=== PATIENT | female | born 1955 | race Caucasian/White ===

== ENCOUNTER 2020-08-25 17:55 | Emergency (ER) | payer MEDICARE, OTHER ==
--- NOTE | 2020-08-25 18:11 | EDM.PDOC ---
ED HPI GENERAL MEDICAL PROBLEM - General Stated Complaint: BACK PAIN Time Seen by Provider: 08/25/20 18:10 Source of Information: Reports: Patient History Limitations: Reports: No Limitations - History of Present Illness INITIAL COMMENTS - FREE TEXT/NARRATIVE: 65-year-old female who reports that she initially had some soreness in her lower back and mostly in the right hip in April 2020. Since then the pain has become more severe and seems to be mostly in her mid back that initially was a soreness and has developed into a progressively worsening pain that is sharp and worse with movement over the past 2-3 weeks. She was seen by her primary provider at that time at [facility] in [place] and had a plain x-ray of her lumbar spine performed that did not show anything and the patient was ref erred to a chiropractor. The patient has seen a chiropractor 3 times and she feels that her pain has been worsening with each treatment beginning days ago she began to have pain in her left flank that seemed be radiating from her back to her left upper abdomen. All of these pains have been progressively worsening to the point where she cannot even ambulate without extreme assistance and she cannot stand because of the severe pain. With any movement her pain goes up to a 10/10 and her pain is a 7/10 at rest. She has had no bowel or bladder control problems. She has taken tramadol for the pain without any relief. There is been no trauma. There has been no fevers or chills. She has not really been eating that well but she does report that she has been drinking liquids well. No dysuria or hematuria. She was somewhat constipated but reports that she took a laxative today and "it's all right now". There are no other associated signs or symptoms. There are no other modifying factors. 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: Other Medication(s) (Tramadol) Bilateral Lower Back Pain Score (Numeric/FACES): 6 - Related Data Allergies Allergy/AdvReac Type Severity Reaction Status Date / Time pseudoephedrine Allergy Rash Verified 08/25/20 18:10 [From Sudafed] Home Meds: Home Meds Cyclobenzaprine [Flexeril] 10 mg PO TID PRN 08/25/20 [History] Escitalopram [Lexapro] 20 mg PO DAILY 08/25/20 [History] Losartan [Cozaar] 100 mg PO DAILY 08/25/20 [History] hydroCHLOROthiazide [Hydrochlorothiazide] 25 mg PO DAILY 08/25/20 [History] traMADol [Ultram] 50 mg PO Q8H PRN 08/25/20 [History] Past Medical History Cardiovascular History: Reports: Hypertension Oncologic (Cancer) History: Reports: Breast - Past Surgical History Female Surgical History: Reports: Hysterectomy Endocrine Surgical History: Reports: Thyroidectomy (Partial thyroidectomy) Oncologic Surgical History: Reports: Lumpectomy (Right breast) Social & Family History - Tobacco Use Tobacco Use Status *Q: Unknown Ever Used Tobacco (Nonsmoker.) - Alcohol Use Alcohol Use Frequency: Socially (Occasional alcohol use.) - Living Situation & Occupation Living situation: Reports: Occupation: Retired ED ROS GENERAL - Review of Systems Review Of Systems: See Below Constitutional: Reports: Malaise, Weakness HEENT: Reports: No Symptoms Respiratory: Reports: No Symptoms Cardiovascular: Reports: No Symptoms GI/Abdominal: Reports: Abdominal Pain. Denies: Diarrhea, Vomiting : Reports: No Symptoms Musculoskeletal: Reports: Back Pain Skin: Reports: No Symptoms Neurological: Reports: No Symptoms Psychiatric: Reports: No Symptoms Hematologic/Lymphatic: Reports: No Symptoms Immunologic: Reports: No Symptoms ED EXAM, GENERAL - Physical Exam Exam: See Below Exam Limited By: No Limitations General Appearance: Alert, Moderate Distress, Obese, Other (Does appear somewhat toxic tachycardia. She is awake, alert and appropriately interactive and responsive.) Eye Exam: Bilateral Eye: EOMI, Normal Inspection (Sclera are anicteric), PERRL Ears: Normal External Exam, Hearing Grossly Normal Ear Exam: Bilateral Ear: Auricle Normal Nose: Normal Inspection, Normal Mucosa, No Blood Throat/Mouth: Normal Voice, No Airway Compromise, Other (Dry mucous membranes) Head: Atraumatic, Normocephalic Neck: Normal Inspection, Supple, Non-Tender, Full Range of Motion Respiratory/Chest: No Respiratory Distress, Lungs Clear, Normal Breath Sounds, No Accessory Muscle Use, Chest Non-Tender Cardiovascular: Normal Peripheral Pulses, No JVD, No Murmur, Tachycardia Peripheral Pulses: 2+: Radial (L), Radial (R), Dorsalis Pedis (L), Dorsalis Pedis (R) GI/Abdominal: Normal Bowel Sounds, Soft, No Mass, Tender (In the left upper quadrant and at the costal margin on the left side). No: Splenomegaly Back Exam: Muscle Spasm (In the lumbar area.), Vertebral Tenderness (Diffuse tenderness.) Extremities: Normal Inspection, Normal Range of Motion, Non-Tender, No Pedal Edema, Normal Capillary Refill Neurological: Alert, Oriented, CN II-XII Intact, Normal Cognition, No Motor/Sensory Deficits Psychiatric: Normal Affect Skin Exam: Warm, Dry, Intact, Normal Color, No Rash #1 Interpretation EKG Date: 08/25/20 Time: 18:57 Rhythm: Other (Sinus tachycardia) Rate (Beats/Min): 110 [place]: Normal P-Wave: Present QRS: Normal ST-T: Depressed (Diffuse T-wave inversion and depression) QT: Normal Comparison: NA - No Prior EKG Course - Vital Signs Last Recorded V/S: Last Vital Signs Temp 36.7 C 08/25/20 18:10 Pulse 111 H 08/25/20 21:42 Resp 16 08/25/20 21:42 BP 116/64 08/25/20 21:42 Pulse Ox 96 08/25/20 21:42 - Orders/Labs/Meds Orders: Active Orders 24 hr Category Date Time Status EKG Documentation Completion [RC] ASDIRECTED Care 08/25/20 18:26 Active Abdomen Pelvis w Cont [CT] Stat Exams 08/25/20 19:31 Taken Lumbar Spine wo Cont [CT] Stat Exams 08/25/20 19:31 Taken CORONAVIRUS COVID-19 ZAY [MOLEC] Stat Lab 08/25/20 22:27 Received Sodium Chloride 0.9% [Normal Saline] 1,000 ml Med 08/25/20 18:30 Active IV ASDIRECTED Sodium Chloride 0.9% [Saline Flush] Med 08/25/20 18:25 Active 10 ml FLUSH ASDIRECTED PRN Peripheral IV Insertion Adult [OM.PC] Routine Oth 04/19/21 18:25 Ordered EKG 12 Lead [EK] Routine Ther 08/25/20 18:25 Ordered Medication Orders Sodium Chloride (Normal Saline) 1,000 mls @ 125 mls/hr IV ASDIRECTED BREN Last Admin: 08/25/20 20:27 Dose: 125 mls/hr Documented by: CINTHYA Sodium Chloride (Sodium Chloride 0.9% 10 Ml Syringe) 10 ml FLUSH ASDIRECTED PRN PRN Reason: Keep Vein Open Last Admin: 08/25/20 18:40 Dose: 10 ml Documented by: CINTHYA Labs: Laboratory Tests 08/25/20 08/25/20 08/25/20 Range/Units 18:35 18:45 18:45 WBC 10.5 H (3.0-10.3) x10-3/uL RBC 4.19 (3.60-5.20) x10(6)uL Hgb 13.5 (11.4-15.5) g/dL Hct 39.9 (34.2-48.2) % MCV 95.3 (76.7-100.5) fL MCH 32.3 (23.9-33.9) pg MCHC 33.9 (31.9-34.8) g/dL RDW 13.8 (12.3-16.5) % Plt Count 304 (151-488) x10(3)uL MPV 8.0 (7.1-12.4) fL Add Manual Diff Yes Neutrophils % (Manual) 71 (46-82) % Band Neutrophils % 4 (0-6) % Lymphocytes % (Manual) 18 (13-37) % Monocytes % (Manual) 6 (4-12) % Eosinophils % (Manual) 1 (0-5) % Sodium 140 (135-145) mmol/L Potassium 3.1 L (3.5-5.3) mmol/L Chloride 95 L (100-110) mmol/L Carbon Dioxide 29 (21-32) mmol/L BUN 41 H (7-18) mg/dL Creatinine 1.1 H (0.55-1.02) mg/dL Est Cr Clr Drug Dosing TNP Estimated GFR (MDRD) 50 L (>60) BUN/Creatinine Ratio 37.3 H (9-20) Glucose 127 H (80-116) mg/dL Calcium 10.5 H (8.6-10.2) mg/dL Magnesium 1.8 (1.8-2.5) mg/dL Total Bilirubin 1.2 (0.1-1.3) mg/dL AST 54 H (5-25) IU/L ALT 59 H (12-36) U/L Alkaline Phosphatase 134 H (56-112) IU/L Troponin I (4.0-60.3) pg/mL C-Reactive Protein (0.5-0.9) mg/dL Total Protein 8.9 H (6.0-8.0) g/dL Albumin 3.5 (3.2-4.6) g/dL Globulin 5.4 g/dL Albumin/Globulin Ratio 0.7 Urine Color Yellow (YELLOW) Urine Appearance Slightly cloudy (CLEAR) Urine pH 5.0 (5.0-6.5) Ur Specific [place] 1.030 H (1.010-1.025) Urine Protein Negative (NEGATIVE) mg/dL Urine Glucose (UA) >1000 H (NORMAL) mg/dL Urine Ketones 50 H (NEGATIVE) mg/dL Urine Occult Blood Moderate H (NEGATIVE) Urine Nitrite Negative (NEGATIVE) Urine Bilirubin Small H (NEGATIVE) Urine Urobilinogen 1 H (NEGATIVE) mg/dL Ur Leukocyte Esterase Negative (NEGATIVE) Urine RBC 0-5 (0-5) Urine WBC 0-5 (0-5) Ur Squamous Epith Cells Occasional (NS,R,O) Urine Bacteria Few H (NS) 08/25/20 Range/Units 18:45 WBC (3.0-10.3) x10-3/uL RBC (3.60-5.20) x10(6)uL Hgb (11.4-15.5) g/dL Hct (34.2-48.2) % MCV (76.7-100.5) fL MCH (23.9-33.9) pg MCHC (31.9-34.8) g/dL RDW (12.3-16.5) % Plt Count (151-488) x10(3)uL MPV (7.1-12.4) fL Add Manual Diff Neutrophils % (Manual) (46-82) % Band Neutrophils % (0-6) % Lymphocytes % (Manual) (13-37) % Monocytes % (Manual) (4-12) % Eosinophils % (Manual) (0-5) % Sodium (135-145) mmol/L Potassium (3.5-5.3) mmol/L Chloride (100-110) mmol/L Carbon Dioxide (21-32) mmol/L BUN (7-18) mg/dL Creatinine (0.55-1.02) mg/dL Est Cr Clr Drug Dosing Estimated GFR (MDRD) (>60) BUN/Creatinine Ratio (9-20) Glucose (80-116) mg/dL Calcium (8.6-10.2) mg/dL Magnesium (1.8-2.5) mg/dL Total Bilirubin (0.1-1.3) mg/dL AST (5-25) IU/L ALT (12-36) U/L Alkaline Phosphatase (56-112) IU/L Troponin I < 4.0 L (4.0-60.3) pg/mL C-Reactive Protein 5.0 H* (0.5-0.9) mg/dL Total Protein (6.0-8.0) g/dL Albumin (3.2-4.6) g/dL Globulin g/dL Albumin/Globulin Ratio Urine Color (YELLOW) Urine Appearance (CLEAR) Urine pH (5.0-6.5) Ur Specific [place] (1.010-1.025) Urine Protein (NEGATIVE) mg/dL Urine Glucose (UA) (NORMAL) mg/dL Urine Ketones (NEGATIVE) mg/dL Urine Occult Blood (NEGATIVE) Urine Nitrite (NEGATIVE) Urine Bilirubin (NEGATIVE) Urine Urobilinogen (NEGATIVE) mg/dL Ur Leukocyte Esterase (NEGATIVE) Urine RBC (0-5) Urine WBC (0-5) Ur Squamous Epith Cells (NS,R,O) Urine Bacteria (NS) Meds: Medications Generic Name Dose Route Start Last Admin Trade Name Freq PRN Reason Stop Dose Admin Sodium Chloride 1,000 mls @ 125 mls/hr 08/25/20 18:30 08/25/20 20:27 Normal Saline IV 125 mls/hr ASDIRECTED BREN Administration Sodium Chloride 10 ml 08/25/20 18:25 08/25/20 18:40 Sodium Chloride 0.9% 10 Ml Syringe FLUSH 10 ml ASDIRECTED PRN Administration Keep Vein Open Discontinued Medications Generic Name Dose Route Start Last Admin Trade Name Freq PRN Reason Stop Dose Admin Sodium Chloride 500 mls @ 999 mls/hr 08/25/20 18:26 08/25/20 19:10 Normal Saline IV 08/25/20 18:56 999 mls/hr .BOLUS ONE Administration Iopamidol 100 ml 08/25/20 19:46 08/25/20 20:03 Iopamidol 755 Mg/Ml 100 Ml Bottle IV 08/25/20 19:47 100 ml . DIRECTED ONE Administration Morphine Sulfate 4 mg 08/25/20 18:26 08/25/20 18:45 Morphine 4 Mg/Ml Vial IVPUSH 08/25/20 18:27 4 mg ONETIME ONE Administration Ondansetron HCl 4 mg 08/25/20 18:26 08/25/20 18:40 Ondansetron 4 Mg/2 Ml Sdv IVPUSH 08/25/20 18:27 4 mg ONETIME ONE Administration - Radiology Interpretation Free Text/Narrative:: CT scan of the abdomen and pelvis showed diffuse heterogeneity of the visualized skeleton with numerous lytic lesions throughout, consistent with diffuse metastatic disease. The largest lesion is in the left T12 pedicle with subdural extension. There is a lesion in the right T1 vertebral body and pedicle as well. Otherwise no acute intra-abdominal process. This was all per the [facility] radiologist. CT scan of the lumbar spine showed same bony findings as above per the [facility] radiologist. Contrast enhanced MRI was suggested - Re-Assessments/Exams Free Text/Narrative Re-Assessment/Exam: 08/25/20 21:25: The patient's blood tests did show some evidence of an acute kidney injury with a mildly low potassium. Her LFTs were somewhat elevated as well. Her serum glucose was 127. Her urine also showed evidence of glucose. The CT scans of her abdomen and pelvis and lumbar spine show evidence of diffuse lytic lesions consistent with diffuse metastatic disease of unknown source. The patient has received IV normal saline with a bolus and she has also received IV pain medication. Her pain is now down to a 6/10 even with movement but she still has significant problems with mobility and significant pain with movement and is standing without assistance. She does not appear to have any focal neurologic findings. She will, however, need admission for pain control and will potentially need oncology and neurosurgery specially services which are not available at [facility]. The patient is [facility] through [facility] and she would prefer that I discussed her case with doctors through [facility] in [place]. 08/25/20 21:45: I discussed the patient is with Dr. Bray, intake physician at [facility], and he has agreed to accept the patient in transfer. The patient will need to be transferred via ambulance to [facility] for direct admission. I have discussed all this with the patient and her and they are in agreement with this plan. Departure - Departure Time of Disposition: 22:43 Disposition: DC/Tfer to Acute Hospital 02 Condition: Fair (Stable.) Clinical Impression: Thoracic radiculopathy due to neoplasm Acute lumbar back pain Qualifiers: Back pain laterality: bilateral Sciatica presence: without sciatica Qualified Code(s): M54.5 - Low back pain Metastatic neoplastic disease Qualifiers: Area of secondary neoplastic involvement: bone Qualified Code(s): C79.51 - Secondary malignant neoplasm of bone - Discharge Information Referrals: Melony Keating BREAKER OPERATOR [Primary Care Provider] - Sepsis Event Note (ED) - Focused Exam Vital Signs: Vital Signs Temp Pulse Resp BP Pulse Ox 08/25/20 21:42 111 H 16 116/64 96 08/25/20 18:10 36.7 C 120 H 18 138/83 96 - My Orders Last 24 Hours: My Active Orders 08/25/20 18:25 Sodium Chloride 0.9% [Saline Flush] 10 ml FLUSH ASDIRECTED PRN Peripheral IV Insertion Adult [OM.PC] Routine EKG 12 Lead [EK] Routine 08/25/20 18:26 EKG Documentation Completion [RC] ASDIRECTED 08/25/20 18:30 Sodium Chloride 0.9% [Normal Saline] 1,000 ml IV ASDIRECTED 08/25/20 19:31 Abdomen Pelvis w Cont [CT] Stat Lumbar Spine wo Cont [CT] Stat 08/25/20 22:27 CORONAVIRUS COVID-19 ZAY [MOLEC] Stat - Assessment/Plan Last 24 Hours: My Active Orders 08/25/20 18:25 Sodium Chloride 0.9% [Saline Flush] 10 ml FLUSH ASDIRECTED PRN Peripheral IV Insertion Adult [OM.PC] Routine EKG 12 Lead [EK] Routine 08/25/20 18:26 EKG Documentation Completion [RC] ASDIRECTED 08/25/20 18:30 Sodium Chloride 0.9% [Normal Saline] 1,000 ml IV ASDIRECTED 08/25/20 19:31 Abdomen Pelvis w Cont [CT] Stat Lumbar Spine wo Cont [CT] Stat 08/25/20 22:27 CORONAVIRUS COVID-19 ZAY [MOLEC] Stat
[2020-08-25] MEDS ORDERED: Sodium Chloride 0.9% 10 ML Syringe FLUSH PRN (18:25)
[2020-08-25] MEDS ORDERED: Ondansetron 4 MG/2 ML SDV IVPUSH ONE (18:26)
[2020-08-25] MEDS ORDERED: Sodium Chloride 0.9% 500 ML IV ONE (18:26)
[2020-08-25] MEDS ORDERED: Morphine 4 MG/ML VIAL IVPUSH ONE (18:26)
[2020-08-25] MEDS: Sodium Chloride 0.9% 1,000 ML IV SCH ×2 (19:06→20:27)
[2020-08-25] MEDS ORDERED: Iopamidol 755 Mg/ML 100 ML Bottle IV ONE (19:46)
[2020-08-25 21:43] VITALS: BP 116/64; PULSE 111
== END 2020-08-25 22:42 ==
LOC: FB.ED 17:55
DX: M54.14 Radiculopathy, thoracic region (principal); G89.3 Neoplasm related pain (acute) (chronic); C79.51 Secondary malignant neoplasm of bone; M54.5 Low back pain; I10 Essential (primary) hypertension; Z79.899 Other long term (current) drug therapy; Z88.8 Allergy status to other drugs, medicaments and biological substances; Z20.822 Contact with and (suspected) exposure to COVID-19
CPT/HCPCS: 36415; 72131; 74177; 80053; 81001; 83735; 84484; 85025; 86140; 93005; 96374; 96375; 99285-25; J2270; J2405; J7030; J7040; Q9967; U0002